=== PATIENT | male | born 1995 | race Caucasian/White ===

== ENCOUNTER 2022-04-05 22:01 | Emergency (ER) | payer SELFPAY ==
[2022-04-05 22:09] VITALS: BP 117/71; PULSE 81; RESP 18; TEMP 36.7; O2SAT 98; BMI 25.7
--- NOTE | 2022-04-05 22:14 | XRR_ITS ---
PROCEDURE INFORMATION: Exam: XR Chest Exam date and time: 04/05/2022 10:23 PM Age: 26 years old Clinical indication: Cough and other: Congestion; Additional info: Cough congestion TECHNIQUE: Imaging protocol: Radiologic exam of the chest. Views: 1 view. COMPARISON: No relevant prior studies available. FINDINGS: Lungs: The lungs are clear. Pleural spaces: Unremarkable. No pleural effusion. No pneumothorax. Heart/Mediastinum: Unremarkable. No cardiomegaly. Bones/joints: Unremarkable. XR/XR chest 1V portable [id number] IMPRESSION: No acute cardiopulmonary abnormality.
--- NOTE | 2022-04-05 22:17 | W.ED.GENADLT ---
HPI - General Adult General: Chief complaint: General Medical Stated complaint: Coughing/chest/lung congestion Time Seen by Provider: 04/05/22 22:13 History of Present Illness: 26-year-old male patient comes in today with chest congestion. Patient reports that he recently switched from smoking to vaping and he thinks that aggravated his lungs. Patient denies any fever, shortness of breath, or chest pain. Patient appears nontoxic. Patient appears in no pain. Associated symptoms: Reports dyspnea Review of Systems Resp: Reports: dyspnea, non-productive cough and wheezing Physical Exam Const: COMMON NORMALS: alert HENMT: COMMON NORMALS: normocephalic HEAD & SCALP: normocephalic Neck/C-Spine: COMMON NORMALS: full ROM Resp: COMMON NORMALS: normal respiratory effort and clear to auscultation bilaterally AUSCULTATION: clear to auscultation bilaterally Cardio: COMMON NORMALS: regular rate RATE: regular rate Extremity: COMMON NORMALS: normal to inspection and full ROM Neuro: SENSORIUM/ORIENTATION: Yes alert Skin: COMMON NORMALS: no rashes or lesions noted GENERAL SKIN EXAM: no rashes or lesions noted Course Vital Signs: Vital signs: Vital Signs Temperature 98.1 F 04/05/22 22:09 Pulse Rate 81 04/05/22 22:09 Respiratory Rate 18 04/05/22 22:09 Blood Pressure 117/71 04/05/22 22:09 Pulse Oximetry 98 04/05/22 22:09 Oxygen Delivery Me thod 04/05/22 22:09 MDM - General Adult Medical Decision Making 26-year-old male patient comes in for cough and congestion for the last 2 to 3 days. On exam patient has clear lung sounds. Vital signs are normal. The nasal drainage is noted. Bilateral TMs are normal. Differential diagnosis include bronchitis, pneumonia, upper respiratory infection. Believe the patient probably has a mild case of bronchitis. We will go ahead and treat with some steroids and the albuterol inhaler. Patient reported understanding of care plan need for follow-up or return. Discharge Plan Discharge Patient Disposition: Home Clinical Impression: Bronchitis Condition: Stable Prescriptions: New albuterol sulfate 90 mcg/actuation HFA aerosol inhaler 2 inh inhalation Q4H PRN (Reason: shortness of breath or wheezing) Qty: 8.5 0RF dexamethasone 4 mg tablet 4 mg PO DAILY Qty: 7 0RF Discharge Orders: Discharge ED (Routine); Ordered 04/05/22 Ordered By: Fredo oMreno Discharge Diet: Usual diet Discharge Activity: Increase activity as tolerated Patient Instructions: Acute Bronchitis (ED) Activity Restrictions/Additional Instructions: Home and rest. Drink plenty of fluids. Use medications as directed. Use albuterol inhaler 2 puffs every 4 hours as needed for shortness of breath, wheezing, or persistent coughing. Take dexamethasone 4 mg daily for the next 7 days. Follow-up with primary care for further instruction. Return to ER for worsening symptoms such as fever greater than 100.4, increased shortness of breath, or chest pain. Coding Level of Care Code ED [facility] [employer] for [place] [facility] Exam Detailed
[2022-04-05] MEDS: dexamethasone 4 mg Tablet 10 MG PO (22:41)
== END 2022-04-05 22:46 | disposition home or self-care (01) ==
PROVIDERS: Emergency Provider Nurse Practitioner Family
DX: J40 Bronchitis, not specified as acute or chronic (principal)
CPT/HCPCS: 71045; 99283; J8540